=== PATIENT | female | born 1955 | race Caucasian/White ===

== ENCOUNTER → 2017-02-26 | Outpatient (CLI) | payer OTHER ==
--- NOTE | 2017-02-26 17:06 | RADIOLOGY REPORT (SQ) ---
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 TECHNIQUE: Sagittal and Axial imaging includes T1, T2, STIR and gradient echo sequences. Coronal T2/ HASTE imaging. LIMITATIONS: None. FINDINGS: VISUALIZED UPPER ABDOMEN: Limited evaluation. No acute or suspicious findings suggested. SEGMENTATION: Transitional anatomy, small disc space at L5-S1. ALIGNMENT: Grade 1 anterolisthesis of L4 over L5 VERTEBRAE: Intact. BONE MARROW: Normal. No marrow replacement or reactive changes. DISC SIGNAL: Diffuse decreased T2 weighted intervertebral disc signal POSTERIOR ELEMENTS: Generally intact. No pars defect evident. HARDWARE: None in the spine. CORD AND CONUS: Normal in size and signal intensity. Conus at the L1-2 level. SOFT TISSUES: No aortic aneurysm seen. No bulky retroperitoneal adenopathy or mass. No paraspinal mas s or fluid. T11-12: No central or foraminal stenosis. T12-L1: Diffuse posterior disc bulging and mild bilateral facet hypertrophy is present. Unfused spi nous process. No central stenosis or significant foraminal narrowing. L1-L2: No central or foraminal stenosis. Mild bilateral facet hypertrophy, mild posterior disc bulgi ng. L2-L3: No central or foraminal stenosis. Moderate bilateral facet hypertrophy. L3-L4: No central or foraminal stenosis. Mild posterior disc bulging, moderate bilateral facet hyper trophy. L4-L5: Grade 1 anterolisthesis of L4 over L5 results from very advanced bilateral facet arthropathy n o central or foraminal encroachment. L5-S1: Small disc space with sacralized L5, with bilateral facet arthropathy. No central or foramina l encroachment. SACRUM: Visualized upper sacrum intact. OTHER: No other significant findings. IMPRESSION: Transitional anatomy with small disc space at L5-S1. Grade 1 anterolisthesis of L4 over L5 without significant central or foraminal stenosis. TECHNICAL DOCUMENTATION: JOB ID: [id number] [employer]- All Rights Reserved
== END ==
LOC: RAD 10:58
PROVIDERS: ATTEND Internal Medicine
DX: M54.32 Sciatica, left side (principal)
CPT/HCPCS: 72148